=== PATIENT | male | born 1980 | race Caucasian/White ===

== ENCOUNTER 2021-12-05 08:22 | Inpatient (IN) ==
[2021-12-05] MEDS ORDERED: Ringers Solution, Lactated 2,000 ML IVC ONE (08:34)
[2021-12-05 08:56] LABS: Basophils # 0.2 K/mcL (0.0-0.2); Basophils % 0.7 %; Immature Granulocytes % 1.7 % (0-4); Lymphocytes # 1.6 K/mcL (0.6-4.6); Mean Corpuscular HGB Conc 30.7 g/dL (31.6-35.5); Mean Corpuscular Hemoglobin 31.5 pg (28.0-33.3); Mean Corpuscular Volume 102.5 fL (83.0-100.0); Mean Platelet Volume 11.3 fL (9.4-12.4); Monocytes # 2.3 K/mcL (0.0-1.3); Monocytes % 9.9 %; Neutrophils # 18.4 K/mcL (1.6-8.9); Platelet Count 302 K/mcL (140-400); Red Blood Count 6.03 M/mcL (4.19-5.50); Red Cell Distribution Width 13.9 % (11.5-14.5); Segmented Neutrophils % 80.7 %; White Blood Count 22.8 K/mcL (4.3-11.1)
[2021-12-05 09:00] LABS: Hematocrit 61.8 % (37.5-50.1)
[2021-12-05 09:15] LABS: Amphetamine Screen,Urine Negative ng/mL (Cutoff=1000); Barbiturate Screen,Urine Negative ng/mL (Cutoff=200); Benzodiazepines Screen,Urine Negative ng/mL (Cutoff=200); Cannabinoid Screen,Urine Negative ng/mL (Cutoff = 50); Cocaine Screen,Urine Negative ng/mL (Cutoff= 300); Opiate Screen,Urine Negative ng/mL (Cutoff=300); Phencyclidine Screen,Urine Negative ng/mL (Cutoff=25)
[2021-12-05 09:19] LABS: Bilirubin,Urine Negative (Negative); Blood,Urine Moderate (Negative); Clarity,Urine Clear (Clear); Color,Urine Light-Yellow (Yellow); Glucose,Urine (UA) >=1000 mg/dL (Normal); Ketones,Urine 40 mg/dL (Negative); Leukocyte Esterase,Urine Negative (Negative); Mucus,Urine Few per lpf (None-Few); Nitrite,Urine Negative (Negative); PH,Urine 5.5 pH Units (5.0-8.0); Protein,Urine 50 mg/dL (Neg-Trace); RBC,Urine 0-3 per hpf (0-3); Specific Gravity,Urine > 1.030 (1.010-1.025); Urobilinogen,Urine Normal (Normal); WBC,Urine 0-3 per hpf (0-3)
[2021-12-05 09:28] LABS: VBG HCO3 9 mEq/L (21-27); VBG PCO2 28 mmHg (41-51); VBG PH 7.09 pH Units (7.32-7.42); VBG PO2 109 mmHg (25-50)
[2021-12-05] MEDS ORDERED: Ringers Solution, Lactated 1,000 ML IVC ONE (09:48)
[2021-12-05 10:34] LABS: Albumin 3.9 g/dL (3.5-5.7); Albumin/Globulin Ratio 1.2 (1.1-2.2); Bilirubin,Total 0.4 mg/dL (0.3-1.0); Calcium 10.9 mg/dL (8.6-10.3); Globulin 3.3 g/dL (2.4-3.5); Magnesium 3.5 mg/dL (1.6-2.6); Phosphorous 7.2 mg/dL (2.7-4.5); Potassium 4.3 mEq/L (3.5-5.1); Total Protein 7.2 g/dL (6.4-8.9); Troponin I 0.04 ng/mL (< 0.04)
[2021-12-05] MEDS ORDERED: Insulin Regular, Human 100 UNIT/ML IV ONE (10:37)
[2021-12-05] MEDS ORDERED: 0.9 % Sodium Chloride w KCl 40 MEQ/1,000 ML MLS IVC SCH (10:45)
[2021-12-05 10:57] LABS: Estimated Average Glucose 344 mg/dl; Hemoglobin A1C 13.6 %
[2021-12-05] MEDS ORDERED: Insulin Human Regular 8 UNIT in 0.9 % Sodium Chloride 10 ML IV ONE (11:30)
[2021-12-05 12:03] LABS: Calcium 10.5 mg/dL (8.6-10.3); Potassium 4.5 mEq/L (3.5-5.1)
[2021-12-05] MEDS: 0.9 % Sodium Chloride 1,000 ML IVC SCH ×2 (13:24→14:34)
[2021-12-05] MEDS ORDERED: Insulin Regular, Human 100 UNIT/ML IV PRN (13:29)
[2021-12-05] MEDS ORDERED: D5% in 0.45% NACL w KCl 20 MEQ/1,000 ML MLS IVC PRN (13:29)
[2021-12-05] MEDS ORDERED: *HR* Dextrose 50 % in Water (Syg) 50 ML SYRINGE IVP PRN (13:29)
[2021-12-05] MEDS ORDERED: Naloxone 0.4 MG/ML INJ IVP PRN (13:29)
[2021-12-05] MEDS ORDERED: 0.9 % Sodium Chloride w KCl 20 MEQ/1,000 ML MLS IVC SCH (13:30)
[2021-12-05 13:38] LABS: Calcium 10.9 mg/dL (8.6-10.3); Potassium 3.2 mEq/L (3.5-5.1)
[2021-12-05] MEDS: cefTRIAXone 2,000 MG in 0.9 % Sodium Chloride 20 ML IVP SCH (14:34)
[2021-12-05] MEDS: Azithromycin 500 MG in 0.9 % Sodium Chloride 250 ML IVPB SCH (14:42)
[2021-12-05 15:33] LABS: Influenza A PCR Negative (Negative); Influenza B PCR Negative (Negative); Resp. Syncytial Virus PCR Negative (Negative); SARS-CoV-2 by PCR (In House) Negative (Negative)
[2021-12-05 15:44] LABS: Calcium 10.6 mg/dL (8.6-10.3); Potassium 2.9 mEq/L (3.5-5.1); Troponin I 0.06 ng/mL (< 0.04)
[2021-12-05 17:08] LABS: Calcium 9.5 mg/dL (8.6-10.3); Potassium 3.3 mEq/L (3.5-5.1)
[2021-12-05 17:09] LABS: Magnesium 3.1 mg/dL (1.6-2.6); Phosphorous < 1.0 mg/dL (2.7-4.5)
[2021-12-05] MEDS ORDERED: 0.45 % Sodium Chloride w/KCl 20 MEQ/1,000 ML MLS IVC SCH ×2 (17:15→17:30)
[2021-12-05] MEDS ORDERED: Potassium Phosphate 44 MEQ in 0.9 % Sodium Chloride 250 ML IVPB ONE (17:28)
[2021-12-05 17:53] LABS: Creatinine,Urine 121 mg/dL; Sodium, Urine < 10.0 mEq/L
[2021-12-05] MEDS: *HR* Heparin 5,000 UNIT/ML VIAL SQ SCH (18:07)
[2021-12-05 19:34] LABS: Calcium 9.5 mg/dL (8.6-10.3); Potassium 3.9 mEq/L (3.5-5.1); Uric Acid 17.2 mg/dL (2.3-7.6)
[2021-12-05 21:30] LABS: Calcium 9.5 mg/dL (8.6-10.3); Potassium 3.7 mEq/L (3.5-5.1)
[2021-12-05 22:41] LABS: VBG HCO3 20 mEq/L (21-27); VBG Ionized Calcium 1.24 mmol/L (1.15-1.35); VBG PCO2 35 mmHg (41-51); VBG PH 7.35 pH Units (7.32-7.42); VBG PO2 60 mmHg (25-50)
[2021-12-05 23:21] LABS: Calcium 9.4 mg/dL (8.6-10.3); Magnesium 3.1 mg/dL (1.6-2.6); Phosphorous 1.4 mg/dL (2.7-4.5); Potassium 3.6 mEq/L (3.5-5.1); Troponin I 0.21 ng/mL (< 0.04)
[2021-12-06] MEDS: Potassium Chloride 20 MEQ in D5% in Water 1,000 ML IVC SCH ×4 (00:03→13:15)
[2021-12-06 01:33] LABS: Calcium 9.6 mg/dL (8.6-10.3); Potassium 3.5 mEq/L (3.5-5.1)
[2021-12-06 04:09] LABS: Albumin 3.5 g/dL (3.5-5.7); Albumin/Globulin Ratio 1.3 (1.1-2.2); Bilirubin,Indirect 0.3 mg/dL (0.0-1.0); Bilirubin,Total 0.3 mg/dL (0.3-1.0); Calcium 9.7 mg/dL (8.6-10.3); Globulin 2.7 g/dL (2.4-3.5); Magnesium 3.1 mg/dL (1.6-2.6); Phosphorous 1.2 mg/dL (2.7-4.5); Potassium 3.4 mEq/L (3.5-5.1); Total Protein 6.2 g/dL (6.4-8.9)
[2021-12-06] MEDS ORDERED: Potassium Phosphate 44 MEQ in 0.9 % Sodium Chloride 250 ML IVPB PRN (05:30)
[2021-12-06] MEDS: *HR* Heparin 5,000 UNIT/ML VIAL SQ SCH ×2 (05:39→18:47)
[2021-12-06 06:20] LABS: Calcium 9.7 mg/dL (8.6-10.3); Potassium 3.4 mEq/L (3.5-5.1)
[2021-12-06] MEDS: cefTRIAXone 2,000 MG in 0.9 % Sodium Chloride 20 ML IVP SCH (08:31)
[2021-12-06 08:51] LABS: Calcium 9.4 mg/dL (8.6-10.3); Potassium 3.9 mEq/L (3.5-5.1)
[2021-12-06] MEDS ORDERED: Insulin Human Regular 250 UNIT in 0.9 % Sodium Chloride 247.5 ML IVC SCH (11:15)
[2021-12-06 12:56] LABS: Calcium 9.2 mg/dL (8.6-10.3); Potassium 3.4 mEq/L (3.5-5.1)
[2021-12-06] MEDS: Potassium Chloride 40 MEQ/200 ML BAG IVPB PRN ×2 (13:15→14:15)
[2021-12-06] MEDS: Azithromycin 500 MG in 0.9 % Sodium Chloride 250 ML IVPB SCH (15:20)
[2021-12-06 16:58] LABS: Calcium 8.4 mg/dL (8.6-10.3); Potassium 3.6 mEq/L (3.5-5.1)
[2021-12-06] MEDS ORDERED: Dextrose 4 GM Chewable Tablets PO PRN ×2 (17:35)
[2021-12-06] MEDS ORDERED: D5% in Water 1,000 ML IVC PRN (17:35)
[2021-12-06] MEDS ORDERED: Acetaminophen 325 MG TABLET PO PRN (17:48)
[2021-12-06] MEDS ORDERED: Insulin LISPRO 300 UNITS/3 ML VIAL SUBQ SCH (20:00)
[2021-12-06 20:15] LABS: Potassium 3.7 mEq/L (3.5-5.1); Uric Acid 11.5 mg/dL (2.3-7.6)
[2021-12-07] MEDS ORDERED: Insulin LISPRO 300 UNITS/3 ML VIAL SUBQ SCH
[2021-12-07 02:35] LABS: Calcium 7.8 mg/dL (8.6-10.3); Potassium 3.5 mEq/L (3.5-5.1)
[2021-12-07 03:28] LABS: Albumin/Globulin Ratio 1.2 (1.1-2.2); Bilirubin,Direct 0.1 mg/dL (0.0-0.2); Bilirubin,Indirect 0.4 mg/dL (0.0-1.0); Bilirubin,Total 0.5 mg/dL (0.3-1.0); Globulin 2.5 g/dL (2.4-3.5); Magnesium 1.7 mg/dL (1.6-2.6); Phosphorous 2.8 mg/dL (2.7-4.5); Total Protein 5.5 g/dL (6.4-8.9)
[2021-12-07] MEDS ORDERED: Insulin DETEMIR 100 UNIT/ML X5UNITS SUBQ SCH ×3 (03:30→21:00)
[2021-12-07] MEDS: Insulin LISPRO 300 UNITS/3 ML VIAL SUBQ SCH ×7 (03:43→23:51)
[2021-12-07] MEDS: *HR* Heparin 5,000 UNIT/ML VIAL SQ SCH ×2 (05:51→18:40)
[2021-12-07 08:36] LABS: Potassium 3.4 mEq/L (3.5-5.1)
[2021-12-07] MEDS: cefTRIAXone 2,000 MG in 0.9 % Sodium Chloride 20 ML IVP SCH (08:45)
[2021-12-07 09:44] LABS: Hematocrit 41.7 % (37.5-50.1); Mean Corpuscular HGB Conc 33.6 g/dL (31.6-35.5); Mean Corpuscular Hemoglobin 31.2 pg (28.0-33.3); Mean Corpuscular Volume 92.9 fL (83.0-100.0); Mean Platelet Volume 10.8 fL (9.4-12.4); Nucleated Red Blood Cells 0.2 /100 WBC (0); Platelet Count 75 K/mcL (140-400); Red Blood Count 4.49 M/mcL (4.19-5.50); Red Cell Distribution Width 13.2 % (11.5-14.5); White Blood Count 11.1 K/mcL (4.3-11.1)
[2021-12-07 09:48] LABS: Lymphocytes # 1.3 K/mcL (0.6-4.6); Monocytes # 0.4 K/mcL (0.0-1.3); Neutrophils # 9.3 K/mcL (1.6-8.9); Platelet Estimate Decreased (Normal)
[2021-12-07] MEDS: D5% in Water 1,000 ML IVC SCH ×3 (11:17→20:08)
[2021-12-07] MEDS: Azithromycin 500 MG in 0.9 % Sodium Chloride 250 ML IVPB SCH (12:42)
[2021-12-07] MEDS ORDERED: Potassium Phosphate 44 MEQ in D5% in Water 250 ML IVPB PRN (13:15)
[2021-12-07 13:41] LABS: Calcium 7.7 mg/dL (8.6-10.3); Potassium 3.8 mEq/L (3.5-5.1)
[2021-12-07] MEDS: Potassium Chloride 40 MEQ/200 ML BAG IVPB PRN ×2 (13:48→14:51)
[2021-12-07] MEDS ORDERED: Insulin DETEMIR 100 UNIT/ML X5UNITS SUBQ ONE (16:30)
[2021-12-07 20:17] LABS: Calcium 7.7 mg/dL (8.6-10.3); Potassium 3.6 mEq/L (3.5-5.1)
[2021-12-07] MEDS: Insulin DETEMIR 100 UNIT/ML X5UNITS SUBQ SCH (20:26)
[2021-12-08] MEDS: D5% in Water 1,000 ML IVC SCH ×2 (03:33→12:47)
[2021-12-08] MEDS: *HR* Heparin 5,000 UNIT/ML VIAL SQ SCH (05:03)
[2021-12-08] MEDS: Insulin LISPRO 300 UNITS/3 ML VIAL SUBQ SCH ×7 (05:04→22:00)
[2021-12-08 07:59] LABS: Hemoglobin 13.1 g/dL (12.9-16.9); Red Cell Distribution Width 13.2 % (11.5-14.5)
[2021-12-08 08:01] LABS: Eosinophils # 0.2 K/mcL (0.0-0.6); Hematocrit 38.9 % (37.5-50.1); Immature Platelets 4.2 % (1.1-6.1); Mean Corpuscular HGB Conc 33.7 g/dL (31.6-35.5); Mean Corpuscular Volume 94.9 fL (83.0-100.0); Mean Platelet Volume 10.7 fL (9.4-12.4); White Blood Count 9.3 K/mcL (4.3-11.1)
[2021-12-08 08:13] LABS: Platelet Count 52 K/mcL (140-400)
[2021-12-08] MEDS: Insulin DETEMIR 100 UNIT/ML X5UNITS SUBQ SCH ×2 (08:23→21:59)
[2021-12-08 08:34] LABS: Lymphocytes # 0.9 K/mcL (0.6-4.6); Monocytes # 0.6 K/mcL (0.0-1.3); Neutrophils # 7.6 K/mcL (1.6-8.9); Platelet Estimate Decreased (Normal)
[2021-12-08 10:22] LABS: Albumin 3.1 g/dL (3.5-5.7); Albumin/Globulin Ratio 1.3 (1.1-2.2); Bilirubin,Indirect 0.6 mg/dL (0.0-1.0); Bilirubin,Total 0.6 mg/dL (0.3-1.0); Calcium 7.4 mg/dL (8.6-10.3); Globulin 2.3 g/dL (2.4-3.5); Magnesium 1.7 mg/dL (1.6-2.6); Phosphorous 4.2 mg/dL (2.7-4.5); Potassium 3.7 mEq/L (3.5-5.1); Total Protein 5.4 g/dL (6.4-8.9)
[2021-12-08] MEDS ORDERED: Insulin DETEMIR 100 UNIT/ML X5UNITS SUBQ ONE (12:00)
[2021-12-08 17:43] LABS: Calcium 7.6 mg/dL (8.6-10.3); Potassium 3.9 mEq/L (3.5-5.1)
[2021-12-08] MEDS ORDERED: Naloxone 0.4 MG/ML INJ IVP PRN (20:14)
[2021-12-08] MEDS ORDERED: D5% in Water 1,000 ML IVC SCH (20:14)
[2021-12-08] MEDS ORDERED: Dextrose 4 GM Chewable Tablets PO PRN ×2 (20:14)
[2021-12-08] MEDS ORDERED: Potassium Chloride 40 MEQ/200 ML BAG IVPB PRN (20:14)
[2021-12-08] MEDS ORDERED: Acetaminophen 325 MG TABLET PO PRN (20:14)
[2021-12-08] MEDS ORDERED: Potassium Phosphate 44 MEQ in D5% in Water 250 ML IVPB PRN (20:14)
[2021-12-08] MEDS ORDERED: *HR* Dextrose 50 % in Water (Syg) 50 ML SYRINGE IVP PRN (20:14)
[2021-12-08] MEDS ORDERED: Insulin LISPRO 300 UNITS/3 ML VIAL SUBQ SCH (21:00)
[2021-12-08] MEDS ORDERED: Insulin DETEMIR 100 UNIT/ML X5UNITS SUBQ SCH (21:00)
[2021-12-09 05:26] LABS: Red Cell Distribution Width 12.2 % (11.5-14.5)
[2021-12-09 05:27] LABS: Hemoglobin 12.5 g/dL (12.9-16.9); Mean Corpuscular HGB Conc 33.8 g/dL (31.6-35.5); Mean Corpuscular Hemoglobin 31.3 pg (28.0-33.3); Mean Corpuscular Volume 92.7 fL (83.0-100.0); Red Blood Count 3.99 M/mcL (4.19-5.50); White Blood Count 9.3 K/mcL (4.3-11.1)
[2021-12-09 05:28] LABS: Immature Platelets 8.7 % (1.1-6.1); Mean Platelet Volume 11.7 fL (9.4-12.4)
[2021-12-09 05:34] LABS: Platelet Count 37 K/mcL (140-400)
[2021-12-09 05:43] LABS: BUN/Creatinine Ratio 16 (6-26); Blood Urea Nitrogen 23 mg/dL (6-20); Calcium 7.4 mg/dL (8.6-10.3); Carbon Dioxide 24 mEq/L (23-29); Chloride 117 mEq/L (98-107); Glucose 229 mg/dL (70-105); Osmolality,Calculated 323 (280-300); Potassium 3.7 mEq/L (3.5-5.1); Sodium 151 mEq/L (136-145); eGFR For African Americans > 60 (> 60); eGFR For Non-African Americans 56 (> 60)
[2021-12-09 06:11] LABS: Basophils # 0.2 K/mcL (0.0-0.2); Eosinophils # 0.4 K/mcL (0.0-0.6); Lymphocytes # 1.3 K/mcL (0.6-4.6); Monocytes # 0.7 K/mcL (0.0-1.3); Neutrophils # 6.7 K/mcL (1.6-8.9); Platelet Estimate Decreased (Normal)
[2021-12-09] MEDS: Insulin DETEMIR 100 UNIT/ML X5UNITS SUBQ SCH ×2 (08:00→22:28)
[2021-12-09] MEDS: Insulin LISPRO 300 UNITS/3 ML VIAL SUBQ SCH ×7 (08:01→21:08)
[2021-12-09] MEDS: Sulfamethoxazole/Trimeth DS 1 EACH TABLET PO SCH ×2 (12:14→22:28)
[2021-12-10 02:28] LABS: Hemoglobin 11.5 g/dL (12.9-16.9); Immature Granulocytes % 0.7 % (0-4); Lymphocytes % 15.4 %
[2021-12-10 02:30] LABS: Basophils % 0.3 %; Eosinophils # 0.2 K/mcL (0.0-0.6); Eosinophils % 2.6 %; Hematocrit 33.4 % (37.5-50.1); Immature Platelets 10.9 % (1.1-6.1); Lymphocytes # 1.1 K/mcL (0.6-4.6); Mean Corpuscular HGB Conc 34.4 g/dL (31.6-35.5); Mean Corpuscular Hemoglobin 31.9 pg (28.0-33.3); Mean Corpuscular Volume 92.8 fL (83.0-100.0); Mean Platelet Volume 11.3 fL (9.4-12.4); Monocytes # 0.9 K/mcL (0.0-1.3); Monocytes % 12.4 %; Neutrophils # 5.1 K/mcL (1.6-8.9); Red Cell Distribution Width 11.9 % (11.5-14.5); Segmented Neutrophils % 68.6 %; White Blood Count 7.4 K/mcL (4.3-11.1)
[2021-12-10 02:46] LABS: BUN/Creatinine Ratio 17 (6-26); Blood Urea Nitrogen 25 mg/dL (6-20); Calcium 8.2 mg/dL (8.6-10.3); Carbon Dioxide 23 mEq/L (23-29); Chloride 117 mEq/L (98-107); Glucose 192 mg/dL (70-105); Osmolality,Calculated 316 (280-300); Potassium 3.9 mEq/L (3.5-5.1); Sodium 148 mEq/L (136-145); eGFR For African Americans > 60 (> 60); eGFR For Non-African Americans 55 (> 60)
[2021-12-10 02:48] LABS: Platelet Count 46 K/mcL (140-400)
[2021-12-10] MEDS: Insulin LISPRO 300 UNITS/3 ML VIAL SUBQ SCH ×4 (08:42→12:54)
[2021-12-10] MEDS: Sulfamethoxazole/Trimeth DS 1 EACH TABLET PO SCH (08:43)
[2021-12-10] MEDS: Insulin DETEMIR 100 UNIT/ML X5UNITS SUBQ SCH (08:44)
[2021-12-10 10:26] VITALS: BP 150/75; PULSE 101; TEMP 98.2; O2SAT 96
== END 2021-12-10 13:50 | disposition home or self-care (01) | DRG 420 ==
LOC: EMEROOARM 08:22 → ICNU 15:04 → 3NENU 12-08 19:54
PROVIDERS: ADMIT Pediatrics; ATTEND Pediatrics